=== PATIENT | male | born 1945 | race Caucasian/White ===

== ENCOUNTER 2017-01-21 16:42 | Inpatient (IN) | payer OTHER ==
[2017-01-21] MEDS ORDERED: CORDARONE ONE (17:36)
[2017-01-21] MEDS ORDERED: NS 1,000 ML ONE (17:37)
[2017-01-21 17:38] LABS: BASO% 0.2 % (0.0-0.8); EOS# 0.02 X1000 (0.0-0.7); EOS% 0.3 % (0.0-10.0); HEMATOCRIT 30.8 % (42.0-52.0); HEMOGLOBIN 10.7 g/dL (14.0-18.0); IMM GRAN# 0.04 X1000 (0.0-0.04); IMM GRAN% 0.6 % (0.0-0.5); INR 1.18; LYMPH# 0.98 X1000 (1.2-3.4); LYMPH% 14.8 % (20.5-51.1); MANUAL DIFF NEEDED? NO; MCH 31.8 PG (27-31); MCHC 34.7 g/dL (33-37); MCV 91.7 FL (81-99); MONO# 1.44 X1000 (0.11-0.59); MONO% 21.8 % (1.7-9.3); MPV 10.1 FL (7.4-10.4); NEUT% 62.3 % (42.2-75.2); PLT 188 X1000 (130-400); PROTIME 12.5 Seconds (9.2-11.7); PTT 28.1 Seconds (22.0-36.0); RBC 3.36 XMIL (4.7-6.1)
--- NOTE | 2017-01-21 17:39 | PROVIDER DOCUMENTATION ---
HPI-Cardiac General - General Source: patient, family - History of Present Illness-Cardiac Quality of Pain: reports: none Severity in ED: moderate Onset/Duration: abrupt, this morning Timing: improving Context/Activities at Onset: reports: none Modifying Factors: improves with: nothing Palpitation Quality: N/A History of arrythmia: reports: A-Fib Recent use of:: reports: no stimulants Nitro Today/Relief: reports: no nitro taken today Prior Chest Pain/Cardiac Workup: reports: echocardiography (EF 10%) Associated Symptoms: denies: abdominal pain, diaphoresis, fever/chills, nausea, shortness of breath, vomiting Similar Symptoms Previously?: Yes Recently Seen Here or By Another Healthcare Provider: Yes <Heber Valdes - Last Filed: 01/21/17 17:40> <Rg Nava - Last Filed: 01/21/17 19:09> - General Chief Complaint: Palpitations Stated Complaint: HOSPICE PATIENT, DEFIBRILLATOR WENT OFF Time Seen by Provider: 01/21/17 17:10 Allergies/Adverse Reactions: Patient Allergies Allergy/AdvReac Type Severity Reaction Status Date / Time No Known Allergies Allergy Verified 01/21/17 17:11 Home Medications: Home Medication List Medication Instructions Recorded Confirmed Last Taken Type Ascorbic Acid/Bioflavonoids [Vit 1 tab PO DAILY 09/16/16 01/21/17 01/21/17 10: 00 History C-Bioflavonoids Tab SA] Aspirin 325 mg PO HS 09/16/16 01/21/17 01/20/17 22:00 History Digoxin 125 mcg PO HS 09/16/16 01/21/17 01/21/17 15:00 History Multivitamin [Central Tiffanie] 1 each PO DAILY 09/18/16 01/21/17 01/21/17 10:00 History Budesonide/Formoterol Fumarate 1 puff INH BID #0 09/19/16 01/21/17 01/21/17 10: 00 Rx [Symbicort 160-4.5 Mcg Inhaler] Benzonatate 100 mg PO BID 01/07/17 01/21/17 01/21/17 10:00 History Amoxicillin/Potassium Clav 1 each PO BID #30 tablet 01/16/17 01/21/17 01/21/17 10:00 Rx [Augmentin 875-125 Tablet] ATORVAstatin [Lipitor] 40 mg PO QHS #0 tablet 01/17/17 01/21/17 01/20/17 20:00 Rx CAPTOpril [Capoten] 6.25 mg PO Q8H #90 tablet 01/17/17 01/21/17 01/21/17 10:00 Rx Cetirizine [Zyrtec] 10 mg PO HS #0 tablet 01/17/17 01/21/17 01/21/17 10:00 Rx Furosemide 80 mg PO BID #30 tablet 01/17/17 01/21/17 01/21/17 10:00 Rx Hydralazine [Apresoline] 10 mg PO TID@0900,1500,2100 #90 01/17/17 01/21/1701/21 12:00 Rx tablet Insulin Humulin 70/30 [Humulin 10 unit SUBQ DAILY@0800 #0 01/17/17 01/21/17 11:00 Rx 70/30] insuln.pen Ipratropium/Albuterol INH 1 puff INH Q6H #0 01/17/17 01/21/17 01/21/17 13:00 Rx [Combivent Respimat Inhaler] Isosorbide Mononitrate E.r. [Imdur] 30 mg PO DAILY #30 tablet 01/17/17 01/21/17 01/21/17 10:00 Rx Levothyroxine [Synthroid] 112 microgm PO DAILY@0700 #0 tablet 01/17/17 01/21/17 01/21/17 10:00 Rx Metolazone [Zaroxolyn] 5 mg PO BID@0400,1600 #60 tablet 01/17/17 01/21/17 10:00 Rx Spironolactone [Aldactone] 25 mg PO BID #60 tablet 01/17/17 01/21/17 01/21/17 10 :00 Rx - History of Present Illness-Cardiac Nature of Presenting Problem: patient is a 71 y/o M that presents to the ER after having his defib/pacemaker got off twice today. Daughter was concerned called heart center, they sent him here due to having low battery on ACID and showing it was going off multiple times. He was in the hospital recently for hyponatremia, pneumonia, end stage systolic heart failure with EF of 10% and was d/c on hospice care. He denies any chest pain or shortness of breath. (Heber Valdes) Review of Systems - Adult - REVIEW OF SYSTEMS - ADULT ROS:: ROS per family Constitutional: denies: chills, fever Eyes: reports: no symptoms reported Ears, Nose, Mouth & Throat: reports: no symptoms reported Cardiovascular: denies: chest pain, palpitations, syncope Respiratory: denies: cough, shortness of breath, wheezing Gastrointestinal: denies: abdominal pain, diarrhea, nausea, vomiting Genitourinary: denies: dysuria, frequency, hematuria Musculoskeletal: reports: no symptoms reported Integumentary: reports: no symptoms reported Neurological: reports: no symptoms reported Psychiatric: reports: no symptoms reported Endocrine: reports: no symptoms reported Hematologic/Lymphatic: reports: no symptoms reported Allergic/Immunologic: reports: no symptoms reported All Other Systems: Reviewed and Negative <Heber Valdes - Last Filed: 01/21/17 17:40> Past History - Adult - PAST MEDICAL HISTORY-ADULT Review of Records: reports: Nursing Assessment Review, Medications Reviewed Cardiovascular: reports: cardiac disease, A-Fib, CAD, CHF (end stage systolic CHF with EF of 10%), HTN, pacemaker Respiratory: reports: COPD Endocrine/Immune: reports: Diabetes, thyroid disorder - PRIOR SURGERIES/PROCEDURES Surgical/Procedure History: reports: CABG, pacemaker (defib), tonsillectomy, orthopedic (extremity) - IMMUNIZATION STATUS Childhood Immunizations: See Nurse Assessment Flu Vaccine: See Nurse Assessment - FAMILY HISTORY Family History: reviewed, not pertinent - SOCIAL HISTORY Smoking: quit greater than 1 year, cigarettes Living Situation: family <Heber Valdes - Last Filed: 01/21/17 17:40> Physical Exam-General - PHYSICAL EXAM-ADULT Initial Vital Signs Reviewed: Yes - CONSTITUTIONAL General Appearance: alert, mild distress, other (chronic ill appearing) - EYES Eyes: PERRL/EOMI, pink conjunctivae - HEAD, EARS, NOSE, MOUTH & THROAT HENMT: normocephalic/atraumatic, moist mucous membranes, normal ENT inspection - NECK Neck: full range of motion, normal inspection - RESPIRATORY Respiratory: lungs clear, normal breath sounds, no respiratory distress, no accessory muscle use - CARDIOVASCULAR Cardiovascular: tachycardia, irregularly irregular - GASTROINTESTINAL (ABDOMEN) Abdominal Exam: normal bowel sounds, non tender, soft - MUSCULOSKELETAL Extremity: no pedal edema, no calf tenderness, normal capillary refill - SKIN Integumentary: normal color, warm/dry - NEUROLOGIC Neurologic: grossly normal, no motor/sensory deficits - PSYCHIATRIC Psych/Mental Status: normal mood/affect, oriented x 3 <Heber Valdes - Last Filed: 01/21/17 17:40> Progress - EKG 1 Time of EKG reading by physician:: 16:55 EKG Read and Signed by:: Jeremy Conte EKG Interpretation (*Must complete 3 of following elements*): Abnormal Rate: 120 Rhythm: Ventricular-paced rhythm with occasional QRS: normal ST Wave: normal Comments: non-diagnostic EKG - CHANGE OF SHIFT REPORT (ED Provider) Report Given and Care Transferred to:: Time of Transfer: 18:00 Items Pending: Labs Tentative Impression of Patient: end stage systolic heart failure, defibator dysfunction <Heber Valdes - Last Filed: 01/21/17 17:40> - CONSULTS/PCP/HOSPITALIST Notification #1 *Consult/PCP/Hospitalist*: Dr. Grossman Time Discussed: 17:50 Consult Disposition: Will see in ED, Admit #2 Consult: Dr. Grossman Time Discussed: 18:40 Consult Disposition: Admit #3 Consult: Dr. Martinez (Hospitalist) Consult Disposition: Admit - CHANGE OF SHIFT REPORT (ED Provider) Report Given and Care Transferred to:: Dr. Rayo Time of Transfer: 18:00 Items Pending: Physician Consult/Arrival <Rg Nava - Last Filed: 01/21/17 19:09> - PLAN OF CARE/RESULTS Progress/Plan/Lab Results: plan of care-cardiac work up 1740-Dr.Peter Grossman at bedside 174- at bedside due to code blue, Dr.Peter Grossman was at bedside and was able resuscitate patient successfully (Heber Valdes) 1840: Dr. Rayo consult with Dr. Grossman in ER. Dr. Grossman reports he is going to admit pt to ICU. Vital Signs - 24 hr 01/21/17 01/21/17 01/21/17 16:45 17:37 17:42 Temperature 97.6 F Pulse Rate 113 H 114 H 113 H Respiratory 26 H 21 20 Rate Blood Pressure 84/49 62/41 67/57 O2 Sat by Pulse 99 95 94 L Oximetry 01/21/17 01/21/17 01/21/17 17:56 17:59 18:04 Temperature Pulse Rate 82 88 75 Respiratory 24 25 H 18 Rate Blood Pressure 103/63 103/63 78/60 O2 Sat by Pulse Oximetry 01/21/17 18:12 Temperature Pulse Rate 76 Respiratory 11 L Rate Blood Pressure 87/61 O2 Sat by Pulse Oximetry Orders Category Date Time Status Cardiac Monitoring DIRECTED Care 01/21/17 17:08 Active Nursing- MD Consult Request ROUTINE Care 01/21/17 18:49 Active Saline Loc NOW Care 01/21/17 17:08 Active Physician/Provider Consults Routine Cons 01/21/17 18:48 Ordered BASIC METABOLIC PANEL [CHEM] Routine Lab 01/22/17 06:00 Ordered CBC WITH ELECTRONIC DIFF [HEME] Stat Lab 01/21/17 17:04 Completed CK PROFILE [SP CHEM] Stat Lab 01/21/17 17:04 Completed COMPREHENSIVE METABOLIC PANEL [CHEM] Stat Lab 01/21/17 17:04 Completed D-DIMER [CHEM] Stat Lab 01/21/17 17:04 Completed MAGNESIUM [CHEM] Routine Lab 01/22/17 06:00 Ordered MAGNESIUM [CHEM] Stat Lab 01/21/17 17:04 Completed PRO B-NATRIURETIC PEPTIDE Stat Lab 01/21/17 17:04 Completed PROTIME WITH INR [COAG] Stat Lab 01/21/17 17:04 Completed PTT [COAG] Stat Lab 01/21/17 17:04 Completed TROPONIN T Stat Lab 01/21/17 17:04 Completed 0.9% Sodium Chloride Inj [Ns] 1,000 ml Med 01/21/17 17:37 Discontinued .ROUTE As Directed 0.9% Sodium Chloride Inj [Ns] 1,000 ml Med 01/21/17 19:02 Active IV 999 mls/hr Amiodarone 360 mg/D5w [Cordarone 360 mg/D5w] 200 ml Med 01/21/17 18:16 Active IV ONCE Amiodarone [Cordarone] Med 01/21/17 17:36 Discontinued 150 mg .ROUTE .STK-MED ONE Dextrose 5%-Water Inj [D5w] 289.2 ml Med 01/21/17 18:16 Ordered Amiodarone [Cordarone] 540 mg IV 16.667 mls/hr Furosemide [Lasix] Med 01/21/17 18:47 Once 40 mg IV NOW ONE Potassium Chloride 20 Meq/Swi 100 ml Med 01/21/17 19:00 Active IV Q4H EKG [EKG] Stat Ther 01/21/17 16:53 Ordered Laboratory Tests 01/21/17 01/21/17 01/21/17 17:04 17:04 17:04 WBC 6.61 RBC 3.36 L Hgb 10.7 L Hct 30.8 L MCV 91.7 MCH 31.8 H MCHC 34.7 RDW Std Deviation 16.8 H Plt Count 188 MPV 10.1 Immature Gran % (Auto) 0.6 H Neut % (Auto) 62.3 Lymph % (Auto) 14.8 L [place] % (Auto) 21.8 H Eos % (Auto) 0.3 Baso % (Auto) 0.2 Immature Gran # (Auto) 0.04 Neut # (Auto) 4.12 Lymph # (Auto) 0.98 L [place] # (Auto) 1.44 H Eos # (Auto) 0.02 Baso # (Auto) 0.01 PT INR PTT (Actin FS) D-Dimer 1.45 H Sodium 120 L* Potassium 3.3 L Chloride 75 L Carbon Dioxide 32 Anion Gap 13 BUN 79 H Creatinine 1.8 H Estimated GFR/1.73 m2 37 BUN/Creatinine Ratio 44 Glucose 161 H Calculated Osmolality 269 Calcium 9.5 Magnesium 2.0 Total Bilirubin 0.82 AST 45 H ALT 37 Alkaline Phosphatase 172 H Creatine Kinase 77 Troponin T Ckg-J-Ybtowdqbyeu Pept Total Protein 7.0 Albumin 3.7 Globulin 3.3 Albumin/Globulin Ratio 1.1 01/21/17 01/21/17 01/21/17 17:04 17:04 17:04 WBC RBC Hgb Hct MCV MCH MCHC RDW Std Deviation Plt Count MPV Immature Gran % (Auto) Neut % (Auto) Lymph % (Auto) [place] % (Auto) Eos % (Auto) Baso % (Auto) Immature Gran # (Auto) Neut # (Auto) Lymph # (Auto) [place] # (Auto) Eos # (Auto) Baso # (Auto) PT 12.5 H INR 1.18 PTT (Actin FS) 28.1 D-Dimer Sodium Potassium Chloride Carbon Dioxide Anion Gap BUN Creatinine Estimated GFR/1.73 m2 BUN/Creatinine Ratio Glucose Calculated Osmolality Calcium Magnesium Total Bilirubin AST ALT Alkaline Phosphatase Creatine Kinase Troponin T 0.052 Sly-P-Ydzawozsgle Pept 29355 H Total Protein Albumin Globulin Albumin/Globulin Ratio (Rg Nava) Departure <Heber Valdes - Last Filed: 01/21/17 17:40> - Departure Time of Disposition Order: 18:48 Certified Medical Emergency: Emergent <Rg Nava - Last Filed: 01/21/17 19:09> - Departure DIAGNOSIS: Ventricular tachycardia, Renal failure, Hyponatremia End-stage systolic heart failure Qualifiers: Congestive heart failure chronicity: chronic Qualified Code(s): I50.22 - Chronic systolic (congestive) heart failure Disposition: ADMITTED INPATIENT 09 Condition: Stable Referrals: None,PCP [Primary Care Provider] - Attestation - Scribe Verification/Attestation Scribe:: Heber Valdes Acting as Scribe for:: Jeremy Conte Scribe documention review:: This chart was documented by a scribe and accurately reflects the service the provider performed and the decisions made by the provider. <Heber Valdes - Last Filed: 01/21/17 17:40> - Scribe Verification/Attestation Scribe:: Rg Nava Acting as Scribe for:: Ed Rayo Scribe documention review:: This chart was documented by a scribe and accurately reflects the service the provider performed and the decisions made by the provider. - Scribe Verification/Attestation #2 Shift Change Time: 18:00 Scribe Name: Rg Nava Acting as Scribe for:: Ed Rayo <Rg Nava - Last Filed: 01/21/17 19:09> Physician Attestation - Physician Attestation I, the provider, attest to the following statement:: Jeremy Conte Physician documentation Attestation:: This documentation recorded by the scribe accurately reflects the service I personally performed and the decisions made by me. <Heber Valdes - Last Filed: 01/21/17 17:40>
[2017-01-21 17:43] LABS: ALBUMIN 3.7 g/dL (3.5-5.0); CALCIUM 9.5 mg/dL (8.8-10.2); POTASSIUM 3.3 mmol/L (3.5-5.1); TOTAL BILIRUBIN 0.82 mg/dL (0.20-1.00)
[2017-01-21] MEDS ORDERED: CORDARONE 360 MG/D5W 200 ML IV ONE (18:16)
[2017-01-21] MEDS ORDERED: LASIX IV ONE (18:47)
[2017-01-21] MEDS: POTASSIUM CHLORIDE 20 MEQ/SWI 100 ML IV SCH ×2 (18:55→23:37)
[2017-01-21] MEDS ORDERED: NS 1,000 ML IV ONE (19:02)
[2017-01-21] MEDS ORDERED: CORDARONE IV ONE (19:05)
--- NOTE | 2017-01-21 19:14 | CONSULTATION ---
DATE OF CONSULTATION: 01/21/2017 INDICATION: Ventricular tachycardia. HISTORY OF PRESENT ILLNESS: Mr. Durate is a 71-year-old, pleasant white male. He [facility]. He reportedly has an ejection fraction around 10% and was sent home on the of this month on hospice. He apparently had some high ventricular rates at home as well as battery life that was at end of life. He was told to come to the ER for further evaluation. I was seeing him in the ER and he initially had some issues with shortness of breath and weakness. In addition, poor oral intake over the last several days. He was not aware of any shocks occurring at home but during my evaluation in the ER, he was noted to go into a wide complex tachycardia consistent with ventricular tachycardia. He was receiving IV amiodarone at that time. He was given at least 1 shock by his device and a brief run of CPR and came back with a perfusing rhythm. He quickly regained consciousness. He was started on IV amiodarone infusion. He has not had any chest pain at home. I had at length discussions with him about his goals of care. PAST MEDICAL HISTORY: Significant for: 1. Ischemic cardiomyopathy. He really seems to be a Class 4 and end stage. 2. Coronary artery disease with history of bypass surgery in the past. 3. Hypertension. 4. Hyperlipidemia. 5. Diabetes mellitus. 6. Implantation of AICD. SOCIAL HISTORY: He currently lives with family. He was apparently discharged on hospice as well as with home health. He is a . Not a smoker presently. FAMILY HISTORY: Significant for hypertension. REVIEW OF SYSTEMS: A 10 system review of systems is notable for those things mentioned in the HPI. PHYSICAL EXAMINATION: Vital signs: He is afebrile. His heart rate during my examination was around 82. His initial blood pressure on presentation was 84/49. More recently, he is running in the 80s systolic. His systolics have been as high as the low 100s. General: He is an ill- appearing white male, somewhat cachectic. Eyes: Nash conjunctivae. White sclerae. Neck: Shows no obvious thyromegaly or thyroid tenderness. Cardiovascular: He is in a regular rate and rhythm. He has no obvious murmurs. He has no edema in his lower extremities but they are cool to the touch. He does have an elevated JVP. He has no obvious murmurs. Chest: Coarse breath sounds with some rales in the bilateral bases. He has no increased work of breathing. Abdomen: Soft, nontender, nondistended. He has no obvious organomegaly. Skin Exam: Warm and dry throughout without any rashes. Neurological: He is moving all extremities well. Cranial nerves 2 through 12 were intact without any sensation deficits. Psychiatric: He is alert, oriented, pleasant. He has normal mood and affect. PERTINENT DATA: His white count is 6.6. His hematocrit is 30.8. His platelet count is 188,000. His INR is 1.18. His D-dimer is 1.45. Sodium 120, potassium 3.3, BUN 79, creatinine 1.8. His last BUN and creatinine were 61 and 1.9 on the . His proBNP is 11,000 here. Cardiac enzymes are negative. Chest x-ray is currently pending. ASSESSMENT: 1. End-stage heart failure. 2. Ventricular tachycardia. PLAN: The patient does appear to be volume overloaded. I had at length discussions with him regarding his goals of care. Patient seems somewhat confused presently and was trying to make decisions regarding his DNR status but presently considering his confusion, I recommended that he wait till the morning when hopefully he will have a clear head and he can have further discussions with his family. His daughter was at bedside and seemed to be understanding regarding the entire situation. I tried to be clear with the patient that given his end-stage heart disease any sort of interventions that we do in the hospital are likely not to alter the time course or the ultimate outcome. He seemed to be understanding of this and is currently trying to decide if he would like any sort of resuscitative measures to be undertaken. I do think a we can initiate amiodarone therapy which would hopefully stop any further shocks from happening. Currently he is on IV amiodarone and hopefully we can change this over to oral in the morning. I will try to give him 40 mg of IV Lasix as he does seem to be volume overloaded. Could consider potentially using Samsca in the morning. However, I believe he is likely in a poor perfusing state and given this we will likely not have a great deal of luck in managing his volume. We will continue to follow along the patient with the hospitalist service.
[2017-01-21] MEDS ORDERED: SAMSCA PO ONE (20:19)
[2017-01-21] MEDS ORDERED: NORCO-7.5 PO PRN (20:37)
[2017-01-21] MEDS ORDERED: ZOFRAN IV PRN (20:37)
[2017-01-21] MEDS ORDERED: TYLENOL PO PRN (20:37)
--- NOTE | 2017-01-21 21:21 | HISTORY AND PHYSICAL ---
REFERRING PHYSICIAN: Iris Mendoza MD REASON FOR ADMISSION: Frequent defibrillator shocks and ventricular tachycardia. HISTORY OF PRESENT ILLNESS: Mr. Jeremy Duarte is a 71-year-old man known to our service with a past medical history of CHF, COPD, atrial fibrillation, peripheral artery disease, hyperlipidemia, hypertensive heart disease, hypothyroidism, chronic systolic heart failure, ejection fraction of 10-15%. He says he has a longstanding history of chronic dyspnea, dizziness with position, but not vertigo. He has chronic lower extremity swelling, PND, orthopnea, but these have not worsened thus far. Patient comes in today because he had 3 successive shocks that bothered him and he wanted to get this checked out. Apparently, this patient is under the care of hospice and per Dr. Dann Grossman. Per the defibrillator tech, I was called to see the patient and after report that the patient has had frequent ventricular tachycardia all day with the defibrillator not shocking some of them because they are nonsustained. Dr. Grossman, his assembler arranger, was called to see him and started him on amiodarone. Other than these complaints, the patient has no other acute complaints referable to the GI or systems. REVIEW OF SYSTEMS: Twelve systems review negative. Positive findings per HPI. ALLERGIES: No known allergies. HOME MEDICATIONS: Ascorbic acid 1 daily, aspirin 325 mg daily, digoxin 125 mcg daily, multivitamin 1 daily, Symbicort 1 puff b.i.d., Tessalon 100 mg b.i.d., atorvastatin 40 mg daily, Augmentin 1 b.i.d., captopril 6.25 mg q.8 hours, Zyrtec 10 mg daily, furosemide 80 mg daily, hydralazine 10 mg t.i.d., insulin 70/30, 10 units daily, Combivent 1 puff q.6 hours, Imdur 30 mg daily, levothyroxine 112 mcg daily, spironolactone 25 mg b.i.d., metolazone 5 mg b.i.d. FAMILY HISTORY: Per patient is unchanged. Notable for prostate cancer, thyroid disease and heart disease. SURGICAL HISTORY: He has had a defibrillator implanted twice, CABG, hip surgery. SOCIAL HISTORY: He is currently living with family i.e. his daughter and granddaughter. Quit smoking about 8 years ago. Does not drink alcohol or use any illicit drugs. PAST MEDICAL HISTORY: See above. DIAGNOSTICS: Chest film has been ordered. Echocardiogram shows paced rhythm. Other lab work of note, white count 6000, hemoglobin and hematocrit 10 and 30, platelets 188,000. Sodium 120, potassium 3.3, BUN 79, creatinine 1.8, chloride 75, bicarb 32, glucose 161, AST 45, ALT 37, alkaline phosphatase 172, troponin 0.055. ProBNP 11,000. D-dimer 1.45, PT PTT is essentially unremarkable. PHYSICAL EXAMINATION: GENERAL: Chronically ill, elderly man who is not in acute distress. He is alert and oriented x3 with normal mood and affect. VITAL SIGNS: Blood pressure is 104/62, heart rate 75, respirations 22, temperature is 97.6. He is alert and oriented to person, place, time with normal mood and affect. HEENT: Head is normocephalic atraumatic. Eyes LILIAN, EOMI. He is anicteric, but pale. ENT and oropharyngeal exam is grossly normal. No notable JVD or positive hepatojugular reflux. No bruit. No thyromegaly. LYMPH NODE: Exam is negative. CHEST: Decreased entry in the bases. No crepitations or wheezes. Chest is somewhat barrel shaped. CARDIOVASCULAR: 1st and 2nd heart sounds heard. Regular rhythm. ABDOMEN: Scaphoid, soft with no focal areas of tenderness. No masses appreciated. Patient has bilateral inguinal herniae which are reducible. EXTREMITIES: 1+ edema and distal lower extremities are cool to touch. Pulses distally show decreased volume, but are symmetrical bilaterally. No clubbing or peripheral cyanosis. NEUROLOGIC: Exam no focal deficits. No asterixis or tremors. SKIN: Grossly intact. I did not evaluate the sacral area, however. MUSCULOSKELETAL: Patient has profound diffuse muscular wasting and atrophy. ASSESSMENT: 1. Frequent recurrent ventricular tachycardia secondary to end-stage congestive heart failure. 2. End-stage systolic heart failure. 3. Chronic obstructive pulmonary disease. 4. Type 2 diabetes. 5. Hypotonic hypervolemic hyponatremia. 6. Hyperlipidemia. 7. Hypertensive heart disease. 8. Hypothyroidism. 9. Chronic kidney disease stage 3. PLAN: 1. At this time, Dr. Landry has seen the patient, initiated amiodarone to lessen frequency of ventricular tachycardia. The patient will have potassium repleted which is currently being done. Overall, patient's prognosis is very grim, especially in the face of hyponatremia, which even portends a very poor prognosis and decreased renal function. Dr. Grossman is going to meet with the family to discuss the implications of hospice and the goal to get the patient a full Do Not Resuscitate level 1 status. In the interim, I will withhold metolazone because of its potential risk of worsening hyponatremia for next 24 hours. I will given him a 1 time dose of Samsca, follow his basic metabolic panel closely to avoid over-correction. Otherwise, in the interim will continue his other home medications, including nebulizer treatments, along with diuretics. I will defer to Dr. Dann Grossman to address his antiarrhythmics. May possibly need increased higher doses of beta blockers for dear premature ventricular contraction and ventricular tachycardia suppression.
[2017-01-21] MEDS: LOVENOX SUBQ SCH (22:06)
[2017-01-21] MEDS: ASPIRIN PO SCH (22:06)
[2017-01-21] MEDS: ZYRTEC PO SCH (22:06)
[2017-01-21] MEDS: LASIX PO SCH (22:06)
[2017-01-21] MEDS: LIPITOR PO SCH (22:07)
[2017-01-21] MEDS: LANOXIN PO SCH (22:07)
[2017-01-21] MEDS: ALDACTONE PO SCH (22:07)
[2017-01-21] MEDS: TESSALON PO SCH (22:07)
[2017-01-21] MEDS: CAPOTEN PO SCH (22:08)
[2017-01-21] MEDS: APRESOLINE PO SCH (22:08)
[2017-01-21 22:09] LABS: CALCIUM 8.9 mg/dL (8.8-10.2); POTASSIUM 3.5 mmol/L (3.5-5.1)
[2017-01-21] MEDS: SYMBICORT 160/4.5 MICROGM INHALER INH SCH (23:45)
[2017-01-21] MEDS: DUONEB (A & A) INH SCH (23:45)
[2017-01-22] MEDS ORDERED: NS 250 ML ONE (00:17)
[2017-01-22 00:38] LABS: URINE CULTURE NEEDED? NO; URINE MICRO REVIEW NEEDED? NO; URINE SOURCE CATH
[2017-01-22 00:48] LABS: BILIRUBIN URINE NEGATIVE (NEGATIVE); BLOOD URINE NEGATIVE (NEGATIVE); COLOR YELLOW; GLUCOSE URINE NEGATIVE (NEGATIVE); LEUKOCYTES URINE NEGATIVE (NEGATIVE); NITRITE URINE NEGATIVE (NEGATIVE); PROTEIN URINE TRACE mg/dL (NEGATIVE); SP GRAVITY URINE 1.009; TURBIDITY URINE CLEAR (CLEAR); UROBILINOGEN URINE NORMAL (NORMAL)
[2017-01-22 00:49] LABS: UR EPITHELIAL CELLS <10 /HPF (<10); URINE BACTERIA NEGATIVE /HPF; URINE RBC <10 /HPF (<10); URINE WBC <10 /HPF (<10)
[2017-01-22] MEDS ORDERED: CORDARONE 540 MG in D5W 289.2 ML IV ONE (01:00)
[2017-01-22 04:09] LABS: MANUAL DIFF NEEDED? NO
[2017-01-22 04:13] LABS: EOS# 0.01 X1000 (0.0-0.7); EOS% 0.1 % (0.0-10.0); HEMATOCRIT 27.2 % (42.0-52.0); HEMOGLOBIN 9.5 g/dL (14.0-18.0); IMM GRAN# 0.06 X1000 (0.0-0.04); IMM GRAN% 0.8 % (0.0-0.5); LYMPH# 0.82 X1000 (1.2-3.4); LYMPH% 11.5 % (20.5-51.1); MCH 31.9 PG (27-31); MCHC 34.9 g/dL (33-37); MCV 91.3 FL (81-99); MONO# 0.96 X1000 (0.11-0.59); MONO% 13.5 % (1.7-9.3); NEUT% 74.1 % (42.2-75.2); PLT 148 X1000 (130-400); RBC 2.98 XMIL (4.7-6.1)
[2017-01-22 05:04] LABS: CALCIUM 9.1 mg/dL (8.8-10.2); POTASSIUM 3.7 mmol/L (3.5-5.1)
[2017-01-22] MEDS: CAPOTEN PO SCH ×3 (06:06→23:44)
[2017-01-22] MEDS: SYNTHROID PO SCH (06:06)
[2017-01-22] MEDS ORDERED: SAMSCA PO ONE (06:18)
--- NOTE | 2017-01-22 07:30 | Diag Imaging Result Document ---
PROCEDURE NAME: CHEST-PORTABLE - 01/21/2017 PORTABLE CHEST: COMPARISON: 01/15/2017. FINDINGS: The patient has a left sided pacemaker. Sternal wires are present. The heart remains enlarged. Worsening infiltrates, particularly in the midright lung. No pleural effusion is identified. IMPRESSION: Worsening infiltrates in the midright lung.
[2017-01-22] MEDS ORDERED: INSULIN PEN NEEDLES ONE (08:25)
[2017-01-22] MEDS: HUMULIN 70/30 SUBQ SCH (08:28)
[2017-01-22] MEDS: ALDACTONE PO SCH ×2 (08:29→21:47)
[2017-01-22] MEDS: VITAMIN C PO SCH (08:29)
[2017-01-22] MEDS: IMDUR PO SCH (08:29)
[2017-01-22] MEDS: LASIX PO SCH ×2 (08:30→21:47)
[2017-01-22] MEDS: TESSALON PO SCH ×2 (08:30→21:47)
[2017-01-22] MEDS: APRESOLINE PO SCH ×3 (08:30→21:47)
[2017-01-22] MEDS: CENTRUM TABLET PO SCH (08:31)
[2017-01-22] MEDS: DUONEB (A & A) INH SCH ×3 (09:35→20:17)
[2017-01-22] MEDS: SYMBICORT 160/4.5 MICROGM INHALER INH SCH ×2 (09:36→20:16)
--- NOTE | 2017-01-22 11:32 | PROGRESS NOTE ---
DATE: 01/22/2017 SUBJECTIVE: This patient is resting comfortably on the bed. He is not complaining of shortness of breath or chest pain at this moment. This patient is not confused. He denies nausea, vomiting, no diarrhea. No fever. No chills. He does look cachectic and frail. Apparently, this patient has been in hospice, but for some reason he has been coming back to the hospital. OBJECTIVE: Vital Signs: Temperature 97.7 degrees, pulse 70, respiratory rate 22, blood pressure 112/86, O2 saturation 100% on 3 L of nasal cannula. HEENT: Head normocephalic. No trauma. PERRLA. Neck: Supple. No JVD. No masses. Central trachea. Chest: Decreased breath sounds globally. Mild rales at the bases. Abdomen: Soft. Nontender and nondistended. Extremities: Trace edema and distal lower extremities are cool to touch. Neurologic: Patient is alert. No focal deficits. LABORATORY: WBC 7.1, hemoglobin 9.5, hematocrit 27.2, platelets 148,000. Sodium 117, potassium 3.7, chloride 74, BUN 77. Creatinine 1.6, glucose 192, calcium 9.1, and magnesium 1.9. ASSESSMENT AND PLAN: 1. Frequent recurrent ventricular tachycardia secondary to end stage CHF. At this moment, it looks like this has been controlled with amiodarone. Cardiology Department is following this patient. This patient has been on hospice but for some reason he is coming to the emergency department. Dr. Dann Grossman is following this patient and as per previous documentation, he is going to talk again about DNR and hospice care. 2. Severe hyponatremia. I went back and checked the blood sodium before previous to admission on 01/17/2017. The sodium was 123. It looks like he has been chronically hyponatremia. He is not having neurological symptoms at this moment. 3. End-stage systolic heart failure. Cardiology Department is following this patient. I will continue with the same treatment. 4. COPD not in exacerbation at this moment. Continue with the same management. 5. Type 2 diabetes. Stable. Continue with the same management. 6. Hyperlipidemia. Continue with the same management. 7. Hypertensive heart disease. Continue with the same treatment for now. 8. Hypothyroidism. Continue with levothyroxine. 9. CKD stage 3. This is his baseline. We will continue to monitor. 10. Overall, this patient looks better compared with the admission. The blood sodium was 117 today and we gave him Samsca 1 dose today. He also received 1 dose yesterday. This patient has been on hospice, but he is still coming to the emergency department. Apparently Dr. Grossman will discuss again with this patient about the possibility of DNR and hospice care. CRITICAL CARE TIME: 40 minutes.
[2017-01-22 11:40] LABS: CALCIUM 8.9 mg/dL (8.8-10.2); POTASSIUM 3.5 mmol/L (3.5-5.1)
--- NOTE | 2017-01-22 15:02 | PROGRESS NOTE ---
DATE: 01/22/2017 SUBJECTIVE: Mr. Duarte says he feels better today. He seems to be a little bit more alert. PHYSICAL EXAMINATION: Vital signs: He is afebrile. Heart rate 76, blood pressure 94/48. General: He is in no acute distress. Cardiovascular: He sounds to be in a regular rate and rhythm. He has a ventricular paced rhythm currently. He has no lower extremity edema with warm and well perfused lower extremities. Chest: Sounds clear to auscultation bilaterally. He has no increased work of breathing. Abdomen: Soft, nontender. PERTINENT DATA: White count 7.1, hematocrit 27.2. His platelet count is 148, 000. His sodium is 121, potassium 3.5. His BUN is 75, creatinine is 1.5. ASSESSMENT: End-stage heart failure. PLAN: I have had at length discussions with the patient and his family again. There does seem to be some confusion over a hospice/palliative approach versus aggressive care. The patient seems to be pursuing some sort of hybrid of this with aggressive resuscitative efforts in the hospital with a goal to transition home to hospice in the near future. I would like to make arrangements with hospice for a discussion tomorrow around noon where hopefully we can get the patient and his family on the same page as to how they want things taken care of. I believe a hospice approach is very appropriate in this patient as his heart failure does appear to be end- stage and he is extremely cachectic. He has had essential stability of his sodium from the check yesterday. He has had no further ventricular ectopy. We will plan on stopping his IV amiodarone and changing him over to oral amiodarone at 400 mg t.i.d. for the time being. I would recommend keeping him in ICU presently and consideration to transition him out to the floor or the CIC tomorrow if he remains stable. Presently he is a full code. MTDD
[2017-01-22 15:39] LABS: CALCIUM 9.3 mg/dL (8.8-10.2); POTASSIUM 3.5 mmol/L (3.5-5.1)
[2017-01-22] MEDS: CORDARONE PO SCH (18:35)
[2017-01-22] MEDS: LOVENOX SUBQ SCH (21:46)
[2017-01-22] MEDS: ASPIRIN PO SCH (21:47)
[2017-01-22] MEDS: LANOXIN PO SCH (21:47)
[2017-01-22] MEDS: LIPITOR PO SCH (21:47)
[2017-01-22] MEDS: ZYRTEC PO SCH (21:47)
[2017-01-23] MEDS: DUONEB (A & A) INH SCH ×4 (03:11→22:15)
[2017-01-23] MEDS: ZAROXOLYN PO SCH ×2 (03:23→15:45)
[2017-01-23 05:51] LABS: MANUAL DIFF NEEDED? NO
[2017-01-23] MEDS: SYNTHROID PO SCH (06:04)
[2017-01-23 06:25] LABS: CALCIUM 9.1 mg/dL (8.8-10.2); POTASSIUM 3.2 mmol/L (3.5-5.1)
[2017-01-23 06:38] LABS: BASO% 0.1 % (0.0-0.8); EOS# 0.16 X1000 (0.0-0.7); EOS% 2.2 % (0.0-10.0); HEMATOCRIT 29.6 % (42.0-52.0); HEMOGLOBIN 10.4 g/dL (14.0-18.0); IMM GRAN# 0.05 X1000 (0.0-0.04); IMM GRAN% 0.7 % (0.0-0.5); LYMPH# 1.45 X1000 (1.2-3.4); LYMPH% 19.6 % (20.5-51.1); MCH 31.9 PG (27-31); MCHC 35.1 g/dL (33-37); MCV 90.8 FL (81-99); MONO# 1.18 X1000 (0.11-0.59); MONO% 15.9 % (1.7-9.3); MPV 10.3 FL (7.4-10.4); NEUT% 61.5 % (42.2-75.2); PLT 153 X1000 (130-400); RBC 3.26 XMIL (4.7-6.1)
[2017-01-23] MEDS ORDERED: KLOR-CON PO ONE (08:03)
[2017-01-23] MEDS: HUMULIN 70/30 SUBQ SCH (08:19)
[2017-01-23] MEDS: VITAMIN C PO SCH (08:20)
[2017-01-23] MEDS: ALDACTONE PO SCH ×2 (08:21→20:48)
[2017-01-23] MEDS: TESSALON PO SCH ×2 (08:21→20:48)
[2017-01-23] MEDS: IMDUR PO SCH (08:22)
[2017-01-23] MEDS: LASIX PO SCH ×2 (08:22→20:48)
[2017-01-23] MEDS: CORDARONE PO SCH ×2 (08:22→20:48)
[2017-01-23] MEDS: CAPOTEN PO SCH ×2 (08:23→15:45)
[2017-01-23] MEDS: CENTRUM TABLET PO SCH (08:24)
[2017-01-23] MEDS ORDERED: SAMSCA PO ONE (08:55)
[2017-01-23] MEDS: SYMBICORT 160/4.5 MICROGM INHALER INH SCH ×2 (09:47→22:15)
[2017-01-23] MEDS: APRESOLINE PO SCH ×4 (09:53→22:48)
--- NOTE | 2017-01-23 11:46 | PROGRESS NOTE ---
DATE: 01/23/2017 SUBJECTIVE: This patient is resting comfortably on the bed, he is complaining today of generalized weakness and mild shortness of breath. This patient is not confused. He denies nausea, vomiting, and diarrhea. No fever. No chills. He looks cachectic and frail. Apparently, today, Dr. Grossman from Cardiology will meet with the family and possible hospice care to discuss his goals of care. OBJECTIVE: Vital Signs: Temperature 97.6 degrees, pulse 70, respiratory rate 14, blood pressure 104/64, oxygen saturation 98 on 3 L of nasal cannula. General: This patient looks cachectic and frail, chronically ill patient. HEENT: Head normocephalic. No trauma. PERRLA. Neck: Supple. No JVD. No masses. Central trachea. Chest: Decreased breath sounds globally. Mild rales at the bases. Abdomen: Soft, nontender, nondistended. Extremities: Trace edema in the lower extremity. They are somehow cool to touch, decreased generalized muscle mass. Neurological: The patient is alert. No focal neurological deficits. LABORATORY DATA: WBC 7.4, hemoglobin 10.4, hematocrit 29.6, platelet 153,000. Sodium 120, potassium 3.2, chloride 76, bicarbonate 32, BUN 69, creatinine 1.7, glucose 110 , calcium 9.1. ASSESSMENT AND PLAN: 1. Frequent recurrent ventricular tachycardia secondary to end-stage heart failure. At this moment, he completed the treatment with amiodarone. His heart rate looks better at this moment, this patient has been on hospice but for some reason he is coming to the emergency department. Dr. Dann Grossman is following this patient and he will have a meeting today with his family and probably with hospice care to discuss his goals of care. 2. Severe hyponatremia. This has been chronic, today his blood sodium was 120 and I gave him a dose of Samsca. We will continue to monitor. 3. End-stage systolic heart failure. Cardiology department is following this patient. I will continue with the same management for now. 4. Chronic obstructive pulmonary disease not in exacerbation at this moment. Continue with the same management and monitoring. 5. Type 2 diabetes. Continue with the same management. 6. Hyperlipidemia. Continue with the same treatment. 7. Hypertensive heart disease. Continue with the same management and monitoring. 8. Hypothyroidism. Continue with levothyroxine. 9. Chronic kidney disease stage 3. This is his baseline. We will continue to monitor. Overall, this patient is looking a little bit better compared with admission. He is not on amiodarone drip and we are just waiting for a meeting. I will transfer this patient to the medical floor with telemetry. CRITICAL CARE TIME: Forty minutes. MTDD
--- NOTE | 2017-01-23 12:57 | PROGRESS NOTE ---
DATE: 01/23/2017 SUBJECTIVE: Mr. Duarte reports he is doing well. He is breathing okay. He is surrounded by multiple family members. Over the course of the evening, after multiple discussions with the family, he has elected to go DNR and proceed with a hospice/palliative approach. He would like to go home. PHYSICAL EXAMINATION: Vital signs: He is afebrile. Heart rate 70, blood pressure 104/68. Intake and output: He continues to have negative I's and O's totaling around 2800 mL roughly. Generally: No acute distress. Cardiovascular: He is in a regular rate and rhythm. He has no obvious murmurs. He has no lower extremity edema. Chest: Clear bilaterally. No increased work of breathing. Abdomen: Soft, nontender. PERTINENT DATA: His sodium is 120, potassium 3.2. His BUN 69, creatinine 1.7. ASSESSMENT: End-stage heart failure. PLAN: I agree with Mr. Duarte's decision. We will continue to monitor him overnight, decrease his amiodarone to b.i.d., and likely plan to transition him to home tomorrow. I will have discussions with Dr. Zavala. I will also make device clinic in [place] aware that we will not be changing out his device even though his battery is at the elective replacement interval. It would not be appropriate to change out the device considering his hospice diagnosis. MTDD
[2017-01-23] MEDS: ASPIRIN PO SCH (20:48)
[2017-01-23] MEDS: ZYRTEC PO SCH (20:48)
[2017-01-23] MEDS: LOVENOX SUBQ SCH (20:48)
[2017-01-23] MEDS: LANOXIN PO SCH (20:48)
[2017-01-23] MEDS: LIPITOR PO SCH (20:49)
[2017-01-24] MEDS: CAPOTEN PO SCH ×2 (02:02→06:32)
[2017-01-24] MEDS: ZAROXOLYN PO SCH (04:29)
[2017-01-24 06:21] LABS: MANUAL DIFF NEEDED? NO
[2017-01-24] MEDS: SYNTHROID PO SCH (06:32)
[2017-01-24 06:46] LABS: BASO% 0.1 % (0.0-0.8); EOS# 0.28 X1000 (0.0-0.7); EOS% 3.2 % (0.0-10.0); HEMATOCRIT 31.9 % (42.0-52.0); HEMOGLOBIN 11.3 g/dL (14.0-18.0); IMM GRAN# 0.05 X1000 (0.0-0.04); IMM GRAN% 0.6 % (0.0-0.5); LYMPH% 15.9 % (20.5-51.1); MCH 32.2 PG (27-31); MCHC 35.4 g/dL (33-37); MCV 90.9 FL (81-99); MONO# 1.12 X1000 (0.11-0.59); MONO% 12.8 % (1.7-9.3); MPV 10.3 FL (7.4-10.4); NEUT% 67.4 % (42.2-75.2); PLT 159 X1000 (130-400); RBC 3.51 XMIL (4.7-6.1)
[2017-01-24 06:47] LABS: CALCIUM 9.4 mg/dL (8.8-10.2); POTASSIUM 4.2 mmol/L (3.5-5.1)
[2017-01-24 07:42] VITALS: BP 85/48
[2017-01-24] MEDS ORDERED: SAMSCA PO ONE (08:18)
[2017-01-24] MEDS: LASIX PO SCH (08:20)
[2017-01-24] MEDS: TESSALON PO SCH (08:20)
[2017-01-24] MEDS: HUMULIN 70/30 SUBQ SCH (08:24)
[2017-01-24] MEDS: ALDACTONE PO SCH (08:45)
[2017-01-24] MEDS: APRESOLINE PO SCH (08:55)
[2017-01-24] MEDS: CENTRUM TABLET PO SCH (08:55)
[2017-01-24] MEDS: VITAMIN C PO SCH (08:55)
[2017-01-24] MEDS: CORDARONE PO SCH (08:55)
[2017-01-24] MEDS: DUONEB (A & A) INH SCH (09:28)
[2017-01-24] MEDS: SYMBICORT 160/4.5 MICROGM INHALER INH SCH (09:28)
[2017-01-24] MEDS: IMDUR PO SCH (09:55)
--- NOTE | 2017-01-24 11:11 | DISCHARGE SUMMARY ---
ADMISSION DATE: 01/21/2017 DISCHARGE DATE: 01/24/2017 CONSULTATIONS: Dr. Dann Grossman with Cardiology. PERTINENT PROCEDURES: Chest x-ray that showed worsening infiltrates in the mid right lung. DISCHARGE DIAGNOSES: 1. End-stage heart failure. Patient going home with [facility]. 2. Frequent recurrent ventricular tachycardia secondary to end-stage heart failure. The patient is to go home with [facility] today. 3. Severe hyponatremia. The patient was given a dose of Samsca. This is chronic. 4. Chronic obstructive pulmonary disease without exacerbation. Stable. 5. Type 2 diabetes. Same management. 6. Hyperlipidemia. Continue with home medications. 7. Hypertensive heart disease. Continue with home medications. 8. Hypothyroidism. Continue Synthroid. 9. Chronic kidney disease stage 3. Aware. Stable. HOSPITAL COURSE: Mr. Duarte is a 71-year-old male, well known to our service with a past medical history of CHF, COPD, atrial fibrillation, peripheral artery disease. Hyperlipidemia, hypertensive heart disease, hypothyroidism, chronic systolic heart failure with an EF of 10-15%. Longstanding history of chronic dyspnea and dizziness with position changes but no vertigo. Chronic lower extremity swelling, PND, orthopnea. Patient came to the ED because he had 3 successive shocks that bothered him and he wanted to get it checked out. I believe he revoked his hospice care to come into the ED. Per the defibrillator tech Dr. Martinez was called to the bedside to see the patient because the patient was having frequent ventricular tachycardia throughout the day and the defibrillator was not shocking some of them because they were nonsustained. Dr. Dann Grossman the rib puller did start him on amiodarone. Other than the episodes of being shocked the patient did not have any other acute complaint. His potassium was repleted. He was hyponatremia. Dr. Grossman did treat with a couple of doses of Samsca. Dr. Grossman did meet with the family to discuss the implications of hospice and the goal to get the patient a full DNR level 1 in the interim and continued other home medications except for his metolazone because it could worsen his hyponatremia. Dr. Grossman did meet with the family. He did elect to go DNR and proceed with the hospice approach to go home. That was set up on 01/23/2017 as well as equipment ordered. Dr. Grossman will let the device Clinic in [place] know that the patient will not be changing out his device even though the battery is at the elective replacement interval. He did state that it would not be appropriate to change out the device considering his hospice diagnosis. The patient is being discharged home with [facility] today. VITAL SIGNS AT TIME OF DISCHARGE: Temperature 97.2 degrees, heart rate 71, respirations 20, blood pressure 97/44, O2 is 92%. DISCHARGE DIET: Diabetic. DISCHARGE MEDICATIONS: Please see MAR as per Dr. Zavala. DISPOSITION: Patient is being discharged home with [facility]. DISCHARGE TIME: Greater than 30 minutes. Dictated by SWETA Hernandez for Clem Wilson MD MTDD
== END 2017-01-24 12:23 | disposition hospice, home (50) | DRG 309 ==
LOC: EDBD → ED 16:42 → ICU 19:32 → 4N 01-23 12:19
PROVIDERS: ATTEND Internal Medicine
PROC: 5A12012 Performance of Cardiac Output, Single, Manual (ICD-10-PCS; principal; 2017-01-21)
DX: I47.2 Ventricular tachycardia (principal); I13.0 Hypertensive heart and chronic kidney disease with heart failure and stage 1 through stage 4 chronic kidney disease, or unspecified chronic kidney disease; R64 Cachexia; E11.22 Type 2 diabetes mellitus with diabetic chronic kidney disease; I50.22 Chronic systolic (congestive) heart failure; E87.1 Hypo-osmolality and hyponatremia; E11.51 Type 2 diabetes mellitus with diabetic peripheral angiopathy without gangrene; I48.91 Unspecified atrial fibrillation; N18.3 Chronic kidney disease, stage 3 (moderate); I25.10 Atherosclerotic heart disease of native coronary artery without angina pectoris; J44.9 Chronic obstructive pulmonary disease, unspecified; E07.9 Disorder of thyroid, unspecified; Z95.1 Presence of aortocoronary bypass graft; Z87.891 Personal history of nicotine dependence; E03.9 Hypothyroidism, unspecified; Z79.899 Other long term (current) drug therapy; Z79.51 Long term (current) use of inhaled steroids; Z79.82 Long term (current) use of aspirin; I25.5 Ischemic cardiomyopathy; Z66 Do not resuscitate; Z68.20 Body mass index [BMI] 20.0-20.9, adult; Z95.810 Presence of automatic (implantable) cardiac defibrillator
CPT/HCPCS: 71010; 80048; 80053; 81001; 82550; 82948; 83735; 83880; 84484; 85025; 85379; 85610; 85730; 93005; 94640; 94761; 94762; 96365; 96366; 96368; 96375; J0282; J1650; J1940; J3480; J7030; J7050; J7060